=== PATIENT | female | born 2005 | race Caucasian/White ===

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

== ENCOUNTER 2025-02-12 21:26 | Emergency (ER) | payer OTHER, SELFPAY ==
--- NOTE | ~2025-02-12 | CT_ITS ---
CLINICAL HISTORY: epigastric pain CT abdomen and pelvis with contrast Comparison: None Findings: The lung bases are clear. Contracted gallbladder. No biliary ductal dilatation. Normal liver, spleen, pancreas, and adrenal glands. Unremarkable kidneys, ureters, and urinary bladder. Uterus and ovaries within normal limits. No free fluid or free air. Normal stomach, small bowel, appendix, and colon. Bones intact. IMPRESSION: No acute findings. This document has been electronically signed by: Jorge A Salguero MD on 02/13/2025 01:33:48
[2025-02-12 21:29] VITALS: BP 125/69; PULSE 84; RESP 16; TEMP 37.1; O2SAT 99; BMI 27.0
[2025-02-12 21:57] LABS: MANUAL DIFF FLAG NO
[2025-02-12 22:00] LABS: Basophils Percent Auto 0.4 % (0-2); Eosinophils Absolute Auto 0.1 X10*3/uL (0.0-0.4); Eosinophils Percent Auto 1.6 % (0-4); Hematocrit 36.9 % (37.0-47.0); Hemoglobin 12.5 g/dl (12.0-16.0); Imm Gran Abs Auto 0.01 X10*3/uL (0.00-0.03); Imm Gran Pct Auto 0.1 % (0.0-0.4); Lymphocytes Absolute Auto 3.4 X10*3/uL (1.2-4.9); Lymphocytes Percent Auto 41.3 % (20-40); Mean Corpuscular HGB Conc 33.9 g/dl (31.0-35.0); Mean Corpuscular Hemoglobin 30.6 pg (27.0-33.0); Mean Corpuscular Volume 90.4 fL (80.0-98.0); Mean Platelet Volume 11.2 fL (9.4-12.3); Monocytes Absolute Auto 0.7 X10*3/uL (0.1-1.2); Monocytes Percent Auto 9.1 % (2-11); Neutrophils Absolute Auto 3.9 x10*3/uL (2.0-8.3); Neutrophils Percent Auto 47.5 % (45-73); Platelet Count 296 X10*3/uL (160-400); Red Blood Count 4.08 X10*6/uL (4.20-5.50); Red Cell Distribution Width 13.2 % (11.0-16.0); White Blood Count 8.2 X10*3/uL (4.8-10.8)
[2025-02-12 22:12] LABS: Anion Gap 13 (12-20); Blood Urea Nitrogen 13 mg/dL (9-16); Calcium 9.1 mg/dL (8.4-10.2); Carbon Dioxide 24 mmol/L (22-29); Chloride 109 mmol/L (96-108); Creatinine Clr Calc Pharmacy 107.4; Estimated Glomerular Filt Rate > 60; Glucose Random 89 mg/dL (60-115); Potassium 3.9 mmol/L (3.3-5.1); Sodium 142 mmol/L (135-145)
[2025-02-12 22:36] LABS: Influenza A PCR NEGATIVE (Negative); Influenza B PCR NEGATIVE (Negative); Resp Syncy Virus RNA Qual PCR NEGATIVE (Negative); SARS COV2 PCR INHOUSE NEGATIVE (Negative)
[2025-02-12 23:38] VITALS: BP 123/64; PULSE 64; RESP 16; TEMP 37.2; O2SAT 100
--- NOTE | 2025-02-12 23:43 | MHC.EDTECH ---
this tech assumed care of this pt at this time, obtained a set of VS which were stable, call light given for safety, and pt changed over into hospital gown. Urine sample needed for pt, pt received specimen collection cup and educated to press call light when sample is provided.
--- NOTE | 2025-02-12 23:58 | MHC.EDTECH ---
at this time this tech sent pt urine specemin down to laboratory via tube system
[2025-02-13 00:02] LABS: Appearance Urine Cloudy; Color Urine Yellow; Glucose Urine UA Negative (Negative); Leukocyte Esterase Urine Moderate (2+) (Negative); Nitrite Urine Negative (Negative); Specific Gravity - Urine >= 1.030 (1.005-1.025); UMIC TRIGGER UACC YES; Urine Blood Negative (Negative); Urine Ketones Negative (Negative); Urine Protein Trace mg/dL (Neg-Trace)
[2025-02-13 00:07] LABS: Bacteria Urine 2+ (None Seen); Hyaline Casts Urine 0-2 /LPF (0-2); RBC Urine 0-2 /HPF (0-2); UACC Culture Trigger YES; UPreg QC Valid YES; Urine Pregnancy NEGATIVE (NEGATIVE); WBC Urine >50 /HPF (0-5)
[2025-02-13] MEDS: 0.9 % Sodium Chloride 1,000 ML 999 ML IV (00:22)
[2025-02-13] MEDS: Ketorolac Tromethamine 15 MG/ML VIAL IVPUSH (00:22)
[2025-02-13] MEDS: ondansetron HCL 4 MG/2 ML VIAL IVPUSH (00:22)
[2025-02-13] MEDS: cefTRIAXone sodium 1 GM VIAL IVPUSH (00:25)
--- NOTE | 2025-02-13 00:29 | PC.NURSE ---
Iv placed in right ac, medicated per mar.
--- NOTE | 2025-02-13 00:41 | ED_ITS ---
HPI - Abdominal Pain General Chief Complaint: Abdominal Pain Stated Complaint: Vomiting Time Seen by Provider: 02/12/25 23:59 History of Present Illness HPI narrative: Patient is a 19-year-old female unable to keep down her food for the last 3-4 days having pain in the abdomen. Having pain in the flank area pain seen by construction services technician already. Does not think she is . There is no vaginal discharge. Nausea vomiting generalized malaise. Has a history of norovirus. Has no increased frequency. Has no burning on urination. Patient has not had any abdominal surgery done in the past. No diarrhea. Related Data Previous Rx's ?Medication ?Instructions ?Recorded ondansetron 4 mg disintegrating 4 mg PO Q8H 4 days #12 tabs 01/25/22 tablet cefpodoxime 200 mg tablet 200 mg PO BID #20 tabs 05/31/23 ondansetron 4 mg disintegrating 4 mg PO Q8H PRN nausea and 05/31/23 tablet vomiting #12 tabs cefuroxime axetil 250 mg tablet 250 mg PO BID 7 days #14 tabs 06/02/23 cefuroxime axetil 500 mg tablet 500 mg PO BID Pyelonephritis #20 02/13/25 tabs ondansetron 4 mg disintegrating 4 mg PO TID PRN nausea and 02/13/25 tablet vomiting 5 days #10 tabs Allergies Allergy/AdvReac Type Severity Reaction Status Date / Time NSAIDS (Non-Steroidal Allergy Unknown Verified 02/12/25 21:31 Anti-Inflamma Review of Systems Review of Systems Positive nausea vomiting Yes all other systems are reviewed and are negative [facility] Past Medical History Attestation statement: The following information was validated with the patient. Medical History No known health problems Social History Social History Smoked in Last 30 Days: No Use of substances other than those prescribed or required for medical reasons: No Advance Directives: No Do you have a plan to hurt others: No Plan Physical Exam ED Vital Signs: Vital Signs - 24 hr 02/12/25 21:29 02/12/25 23:38 Temperature 98.8 F 98.9 F Pulse Rate 84 64 Respiratory Rate 16 16 Blood Pressure 125/69 123/64 Pulse Oximetry 99 100 Oxygen Delivery Method Room Air Room Air BMI result Body Mass Index 27.0 Appearance: Alert. Oriented X3. No acute distress. Eyes: Pupils equal, round and reactive to light. ENT: Pharynx normal. Neck: Normal inspection. Neck supple. No lymph nodes noted. No crepitus CVS: Normal heart rate and rhythm. Pulses normal. Normal S1 and S2 Respiratory: No respiratory distress. Breath sounds normal. No Wheezing. No rales Abdomen: Soft and nontender. No rigidity. No distention. good BS x4. Mild right-sided CVA tenderness Skin: Skin warm and dry. Normal skin color. Normal skin turgor. Extremities: No lower extremity edema. Neurovascular intact to all extremities. No Lacerations. No Rash Neuro: Oriented X 3. No motor deficit. No sensory deficit. Moving all extermities. No slurred speech Medical Decision Making Medical Decision Making MDM Narrative: test was negative there is no evidence for related issues. Patient is white count was normal. Urine shows signs of infection there is mild CVA tenderness noted. Patient's kidney function is normal. Will get a CT scan of the abdomen to rule out the possibility of kidney stones. Currently in no distress. COVID flu RSV were all negative. Patient's urine was grossly infected. Antibiotic was started. Patient is CT scan of the abdomen showed no evidence of kidney stone. Given fluids given Zofran for nausea. Antibiotics given. test was negative no related issues. COVID flu RSV were all negative. Will discharge patient home with additional antibiotics. Close follow-up on an outpatient basis. In stable condition. Differential Diagnosis Differential Diagnoses: The differential diagnosis associated with the presentation includes Pyelonephritis, kidney stone, biliary disease, appendicitis Admission/Observation Consideration of admission/observation: Escalation of care including admission/observation considered Lab Data [facility] Lab Attestation statement: I reviewed the patient's lab results. 02/12/25 21:49 02/12/25 21:49 Labs: Lab Results 02/12/25 02/12/25 Range/Units 21:49 23:52 WBC 8.2 (4.8-10.8) X10*3/uL RBC 4.08 L (4.20-5.50) X10*6/uL Hgb 12.5 (12.0-16.0) g/dl Hct 36.9 L (37.0-47.0) % MCV 90.4 (80.0-98.0) fL MCH 30.6 (27.0-33.0) pg MCHC 33.9 (31.0-35.0) g/dl RDW 13.2 (11.0-16.0) % Plt Count 296 (160-400) X10*3/uL MPV 11.2 (9.4-12.3) fL Immature Gran % (Auto) 0.1 (0.0-0.4) % Neut % (Auto) 47.5 (45-73) % Lymph % (Auto) 41.3 H (20-40) % [place] % (Auto) 9.1 (2-11) % Eos % (Auto) 1.6 (0-4) % Baso % (Auto) 0.4 (0-2) % Lymph # (Auto) 3.4 (1.2-4.9) X10*3/uL [place] # (Auto) 0.7 (0.1-1.2) X10*3/uL Eos # (Auto) 0.1 (0.0-0.4) X10*3/uL Baso # (Auto) 0.0 (0.0-0.2) X10*3/uL Abs Immat Gran (auto) 0.01 (0.00-0.03) X10*3/uL Absolute Neuts (auto) 3.9 (2.0-8.3) x10*3/uL Absolute Nucleated RBC 0.000 (0.0-0.012) X10*3/uL Nucleated RBC % (auto) 0.0 (0.0-0.2) /100WBC Sodium 142 (135-145) mmol/L Potassium 3.9 (3.3-5.1) mmol/L Chloride 109 H (96-108) mmol/L Carbon Dioxide 24 (22-29) mmol/L Anion Gap 13 (12-20) BUN 13 (9-16) mg/dL Creatinine 0.75 (0.5-1.4) mg/dL Estim Creat Clear Calc 107.4 Estimated GFR > 60 Random Glucose 89 (60-115) mg/dL Calcium 9.1 D (8.4-10.2) mg/dL Urine Color Yellow Urine Appearance Cloudy Urine pH 6.0 (5.0-9.0) Ur Specific [place] >= 1.030 H (1.005-1.025) Urine Protein Trace (Neg-Trace) mg/dL Urine Glucose (UA) Negative (Negative) mg/dL Urine Ketones Negative (Negative) mg/dL Urine Blood Negative (Negative) Urine Nitrite Negative (Negative) Ur Leukocyte Esterase Moderate (2+) H (Negative) Urine RBC 0-2 (0-2) /HPF Urine WBC >50 H (0-5) /HPF Ur Squamous Epith Cells 11-20 (0-2) /HPF Urine Bacteria 2+ (None Seen) Hyaline Casts 0-2 (0-2) /LPF Urine Test NEGATIVE (NEGATIVE) Influenza Type A (PCR) NEGATIVE (Negative) Influenza Type B (PCR) NEGATIVE (Negative) RSV RNA Qual (PCR) NEGATIVE (Negative) SARS-CoV-2 RNA (RT-PCR) NEGATIVE (Negative) Independent Interpretation I performed an independent interpretation of an: CT Scan (Grossly no obstruction no abscess no perforation) Radiology Impression Discussion of test interpretation with radiology: I have reviewed the radiologist's reading. Medications Administered Discontinued Medications Generic Name Dose Route Start Last Admin Trade Name Freq PRN Reason Stop Dose Admin Ceftriaxone Sodium 1 gm 02/13/25 00:17 02/13/25 00:25 Ceftriaxone Sodium 1 Gm Vial IVPUSH 02/13/25 00:18 1 gm ONCE ONE Administration Sodium Chloride 1,000 mls @ 999 mls/hr 02/13/25 00:15 02/13/25 01:27 Ns IV 02/13/25 01:15 Infused .Q1H1M SERENE Infusion Iohexol 85 ml 02/13/25 00:46 02/13/25 00:46 Iohexol 350 Mg/Ml 100 Ml Infus..Btl IV 02/13/25 00:47 85 ml ONCE ONE Administration Ketorolac Tromethamine 15 mg 02/13/25 00:06 02/13/25 00:22 Ketorolac Tromethamine 15 Mg/Ml Vial IVPUSH 02/13/25 00:07 15 mg ONCE ONE Administration Ondansetron HCl 4 mg 02/13/25 00:06 02/13/25 00:22 Ondansetron Hcl 4 Mg/2 Ml Vial IVPUSH 02/13/25 00:07 4 mg ONCE ONE Administration Discharge Plan Discharge Clinical Impression: Pyelonephritis Patient Disposition: Home, Self-Care Instructions: Kidney Infection (ED) Additional Instructions: May take Tylenol for pain. Zofran for nausea. Take your antibiotics. Prescriptions: New ondansetron 4 mg tablet,disintegrating 4 mg PO TID PRN (Reason: nausea and vomiting) 5 Days Qty: 10 0RF cefuroxime axetil 500 mg tablet 500 mg PO BID Qty: 20 0RF No Action ondansetron 4 mg tablet,disintegrating 4 mg PO Q8H 4 Days Qty: 12 0RF ondansetron 4 mg tablet,disintegrating 4 mg PO Q8H PRN (Reason: nausea and vomiting) Qty: 12 0RF cefpodoxime 200 mg tablet 200 mg PO BID Qty: 20 0RF Rx Instructions: must administer with a meal/food cefuroxime axetil 250 mg tablet 250 mg PO BID 7 Days Qty: 14 0RF Print Language: Italian
[2025-02-13] MEDS: iohexoL 350 MG/ML 100 ML INFUS..BTL 85 ML IV (00:46)
--- NOTE | 2025-02-13 02:02 | PC.NURSE ---
Iv removed, reviewed discharge instructions with pt. pt verbalized understanding, no sign of distress.
[2025-02-13 02:04] VITALS: BP 123/64; PULSE 64; RESP 16; TEMP 37.2; O2SAT 100
== END 2025-02-13 02:04 | disposition home or self-care (01) ==
PROVIDERS: Emergency Provider Emergency Medicine Emergency Medical Services; PCP Pediatrics
DX: N12 Tubulo-interstitial nephritis, not specified as acute or chronic (principal); R11.2 Nausea with vomiting, unspecified; R10.2 Pelvic and perineal pain; R53.81 Other malaise; Z03.818 Encounter for observation for suspected exposure to other biological agents ruled out; Z79.899 Other long term (current) drug therapy
CPT/HCPCS: 0241U; 36415; 74177; 80048; 81001; 81003; 81025; 85025; 87086; 96361; 96374; 96375; 99284; 99285; J0696; J1885; J2405; Q9967

== ENCOUNTER → 2025-02-13 00:06 | Outpatient (BNV) | payer OTHER, SELFPAY | PROVIDERS: Emergency Provider Emergency Medicine Emergency Medical Services; PCP Pediatrics; Visit Provider Radiology Diagnostic Radiology | DX: R10.13 Epigastric pain (principal) | CPT/HCPCS: 74177 ==

== ENCOUNTER 2025-06-16 10:18 | Emergency (ER) | payer OTHER, SELFPAY ==
[2025-06-16] VITALS (8 sets, daily range): BP systolic 100–145; BP diastolic 47–76; PULSE 58–115; RESP 16; TEMP 36.6–36.9; O2SAT 96–100; BMI 26.7
--- NOTE | ~2025-06-16 | US_ITS ---
CLINICAL HISTORY: ? gallstnes US gallbladder Comparison: CT/SR - CT ABDOMEN PELVIS W IV CON - 02/13/25 00:38 EDT Findings: There are 2 small gallbladder polyps measuring up to 4 mm in size. There are no shadowing gallstones. There is no gallbladder wall thickening or pericholecystic fluid. The common bile duct measures 3 mm. IMPRESSION: 1. There are 2 small gallbladder polyps. 2. No cholelithiasis or biliary obstruction. This document has been electronically signed by: Jewell Nash MD on 06/16/2025 16:49:53
[2025-06-16 10:40] LABS: MANUAL DIFF FLAG NO
[2025-06-16 10:41] LABS: Hematocrit 41.2 % (37.0-47.0); Hemoglobin 14.3 g/dl (12.0-16.0); Imm Gran Abs Auto 0.02 X10*3/uL (0.00-0.03); Imm Gran Pct Auto 0.3 % (0.0-0.4); Lymphocytes Absolute Auto 1.9 X10*3/uL (1.2-4.9); Mean Corpuscular HGB Conc 34.7 g/dl (31.0-35.0); Mean Corpuscular Hemoglobin 30.8 pg (27.0-33.0); Mean Corpuscular Volume 88.8 fL (80.0-98.0); NRBC Abs Auto 0.000 X10*3/uL (0.0-0.012); NRBC Pct Auto 0.0 /100WBC (0.0-0.2); Platelet Count 331 X10*3/uL (160-400); Red Blood Count 4.64 X10*6/uL (4.20-5.50); White Blood Count 6.0 X10*3/uL (4.8-10.8)
[2025-06-16 11:01] LABS: Alanine Aminotransferase 14 U/L (0-31); Albumin Level 5.0 g/dL (3.5-5.0); Alkaline Phosphatase 74 U/L (39-117); Anion Gap 15 (12-20); Aspartate Amino Transferase 19 U/L (5-31); Blood Urea Nitrogen 13 mg/dL (9-16); Calcium 9.9 mg/dL (8.4-10.2); Carbon Dioxide 24 mmol/L (22-29); Chloride 105 mmol/L (96-108); Creatinine Clr Calc Pharmacy 108.9; Estimated Glomerular Filt Rate > 60; Potassium 3.9 mmol/L (3.3-5.1); Sodium 140 mmol/L (135-145); Total Protein 8.8 g/dL (6.5-8.0)
--- NOTE | 2025-06-16 11:18 | PC.NURSE ---
PT AXO3 states she has been having mid abdominal pain that radiates to right flank. Last time pt ate solids was yesterday at 2::30 pm but pt vomited after, Pt has persistent n/v for about a week she states. PT sated also when she stands and get up she feels a head yañez and can't see anything for a few seconds. Ortho VS done. VS update. 20G IV placed in right AC pt changed into hospital gown waiting on provider. Call huerta within reach.
--- NOTE | 2025-06-16 11:37 | PC.NURSE ---
PT medicated per MAR, PT Aware she has to give UA sample, will notify staff when sample is given. PT is calm and cooperative.Call huerta within reach.
--- NOTE | 2025-06-16 12:29 | ED.NAVMDI ---
HPI - Nausea/Vomiting/Diarrhea General Chief complaint: Abdominal Pain Stated complaint: vomiting alot Time Seen by Provider: 06/16/25 10:56 Source: patient Mode of arrival: ambulatory Limitations: no limitations History of Present Illness HPI Narrative: This is a 20 years old the patient presented to the ED with a chief complaint of nausea vomiting and abdominal pain symptoms have been going on for about a month she was seen at the urgent care she was referred to us to rule out acute cholecystitis. She has no past medical history she does not take any medication last menstrual period was 2 days ago MD elicited complaint: nausea and vomiting Onset (ago): month(s) (1) Description of vomiting: watery Associated nausea: Yes Location of pain: none Quality: cramping Exacerbating factors: none Relieving factors: none Associated symptoms: denies other symptoms Related Data Previous Rx's ?Medication ?Instructions ?Recorded ondansetron 4 mg disintegrating 4 mg PO Q8H 4 days #12 tabs 01/25/22 tablet cefpodoxime 200 mg tablet 200 mg PO BID #20 tabs 05/31/23 ondansetron 4 mg disintegrating 4 mg PO Q8H PRN nausea and 05/31/23 tablet vomiting #12 tabs cefuroxime axetil 250 mg tablet 250 mg PO BID 7 days #14 tabs 06/02/23 cefuroxime axetil 500 mg tablet 500 mg PO BID Pyelonephritis #20 02/13/25 tabs ondansetron 4 mg disintegrating 4 mg PO TID PRN nausea and 02/13/25 tablet vomiting 5 days #10 tabs Allergies Allergy/AdvReac Type Severity Reaction Status Date / Time NSAIDS (Non-Steroidal Allergy Unknown Verified 06/16/25 10:21 Anti-Inflamma Review of Systems Constitutional: Constitutional: Reports no additional constitutional complaints Respiratory: Respiratory: Reports no additional respiratory complaints Gastrointestinal: Gastrointestinal: Reports nausea and Reports vomiting PMFSH Past Medical History PMFSH Narrative: none Medical History No known health problems Social History Social History Use of substances other than those prescribed or required for medical reasons: No Advance Directives: No Advance Directives Information Provided: No Do you have a plan to hurt others: No Plan Physical Exam Exam: Exam: On examination she looks well she is not toxic-appearing she is lying in the stretcher in not acute distress skin is warm and dry Vital Signs: Vital Signs: Last Vital Signs Temp 97.9 F 06/16/25 10:55 Pulse 66 06/16/25 14:27 Resp 16 06/16/25 10:20 BP 111/62 06/16/25 15:52 Pulse Ox 97 06/16/25 10:55 O2 Del Method Room Air 06/16/25 10:55 BMI result Body Mass Index 26.7 Const: General: cooperative, healthy appearing, comfortable and no acute distress Nutritional Appearance: average body habitus Orientation/consciousness: oriented to time Limitations: no limitations HEENT: Head: Yes normal to inspection Face and sinus: Yes normal facial exam Neck: Neck: Yes normal visual inspection Chest: Chest palpation & inspection: normal inspection of the chest Resp: Effort & Inspection: normal respiratory effort Auscultation: clear to auscultation bilaterally Cardio: Jugular venous distension: no JVD Rate: regular rate Rhythm: regular rhythm GI: Inspection: Yes normal to inspection Palpation (GI): Soft to palpation, not firm and nontender Auscultation: normal bowel sounds Skin: General skin exam: no rashes or lesions noted and elasticity normal Lesions: no lesions Rashes: no rashes Neuro: General: oriented to time Course Reevaluation(s) Reevaluation #1: As now I do not have an official reading of the ultrasound, I took a look myself to the ultrasound I do not see any gallstones or evidence of cholecystitis the common bile duct is normal at this point I think I can discharge the patient home given the fact that she has a normal white count Time: 16:21 Medications Administered Discontinued Medications Generic Name Dose Route Start Last Admin Trade Name Freq PRN Reason Stop Dose Admin Sodium Chloride 1,000 mls @ 999 mls/hr 06/16/25 11:30 06/16/25 14:24 Ns IVCONT 06/16/25 12:30 Infused .Q1H1M SERENE Infusion Acetaminophen 1,000 mg in 100 mls @ 400 mls/hr 06/16/25 12:25 06/16/25 13:51 Ofirmev IV 06/16/25 12:39 Infused ONCE ONE Infusion Ondansetron HCl 4 mg 06/16/25 11:19 06/16/25 11:27 Ondansetron Hcl 4 Mg/2 Ml Vial IVPUSH 06/16/25 11:20 4 mg ONCE ONE Administration Medical Decision Making Medical Decision Making [facility] Narrative: Patient is here complaining of nausea vomiting we will obtain labs administer IV fluid antiemetic and reassess Differential Diagnosis Differential Diagnoses: The differential diagnosis associated with the presentation includes Differential diagnosis dehydration/gastroenteritis/colitis/cholecystitis Admission/Observation Consideration of admission/observation: Escalation of care including admission/observation considered Lab Data 06/16/25 10:32 06/16/25 10:32 Labs: Lab Results 06/16/25 06/16/25 Range/Units 10:32 12:33 WBC 6.0 (4.8-10.8) X10*3/uL RBC 4.64 (4.20-5.50) X10*6/uL Hgb 14.3 (12.0-16.0) g/dl Hct 41.2 (37.0-47.0) % MCV 88.8 (80.0-98.0) fL MCH 30.8 (27.0-33.0) pg MCHC 34.7 (31.0-35.0) g/dl RDW 12.8 (11.0-16.0) % Plt Count 331 (160-400) X10*3/uL MPV 10.7 (9.4-12.3) fL Immature Gran % (Auto) 0.3 (0.0-0.4) % Neut % (Auto) 56.6 (45-73) % Lymph % (Auto) 32.4 (20-40) % [place] % (Auto) 9.2 (2-11) % Eos % (Auto) 1.0 (0-4) % Baso % (Auto) 0.5 (0-2) % Lymph # (Auto) 1.9 (1.2-4.9) X10*3/uL [place] # (Auto) 0.6 (0.1-1.2) X10*3/uL Eos # (Auto) 0.1 (0.0-0.4) X10*3/uL Baso # (Auto) 0.0 (0.0-0.2) X10*3/uL Abs Immat Gran (auto) 0.02 (0.00-0.03) X10*3/uL Absolute Neuts (auto) 3.4 (2.0-8.3) x10*3/uL Absolute Nucleated RBC 0.000 (0.0-0.012) X10*3/uL Nucleated RBC % (auto) 0.0 (0.0-0.2) /100WBC Sodium 140 (135-145) mmol/L Potassium 3.9 (3.3-5.1) mmol/L Chloride 105 (96-108) mmol/L Carbon Dioxide 24 (22-29) mmol/L Anion Gap 15 (12-20) BUN 13 (9-16) mg/dL Creatinine 0.73 (0.5-1.4) mg/dL Estim Creat Clear Calc 108.9 Estimated GFR > 60 Random Glucose 84 (60-115) mg/dL Calcium 9.9 D (8.4-10.2) mg/dL Total Bilirubin 1.0 (0.0-1.0) mg/dL AST 19 (5-31) U/L ALT 14 (0-31) U/L Alkaline Phosphatase 74 (39-117) U/L Total Protein 8.8 H (6.5-8.0) g/dL Albumin 5.0 (3.5-5.0) g/dL Urine Color Yellow Urine Appearance Cloudy Urine pH 6.0 (5.0-9.0) Ur Specific [place] >= 1.030 H (1.005-1.025) Urine Protein Trace (Neg-Trace) mg/dL Urine Glucose (UA) Negative (Negative) mg/dL Urine Ketones 40 (Negative) mg/dL Urine Blood Negative (Negative) Urine Nitrite Negative (Negative) Ur Leukocyte Esterase Moderate (2+) H (Negative) Urine RBC 0-2 (0-2) /HPF Urine WBC 21-50 H (0-5) /HPF Ur Squamous Epith Cells 11-20 (0-2) /HPF Urine Bacteria 4+ (None Seen) Hyaline Casts 0-2 (0-2) /LPF Discharge Plan Discharge Clinical Impression: Vomiting Qualifiers: Vomiting type: unspecified Nausea presence: with nausea Qualified Code(s): R11.2 - Nausea with vomiting, unspecified Patient Disposition: Home, Self-Care Instructions: Acute Nausea and Vomiting (ED), Acute Abdominal Pain (DC) Additional Instructions: Follow-up with your primary care physician return if you worse Prescriptions: No Action ondansetron 4 mg tablet,disintegrating 4 mg PO Q8H 4 Days Qty: 12 0RF ondansetron 4 mg tablet,disintegrating 4 mg PO TID PRN (Reason: nausea and vomiting) 5 Days Qty: 10 0RF cefuroxime axetil 500 mg tablet 500 mg PO BID Qty: 20 0RF ondansetron 4 mg tablet,disintegrating 4 mg PO Q8H PRN (Reason: nausea and vomiting) Qty: 12 0RF cefpodoxime 200 mg tablet 200 mg PO BID Qty: 20 0RF Rx Instructions: must administer with a meal/food cefuroxime axetil 250 mg tablet 250 mg PO BID 7 Days Qty: 14 0RF Print Language: [place]
[2025-06-16 12:50] LABS: Appearance Urine Cloudy; Glucose Urine UA Negative (Negative); PH 6.0 (5.0-9.0); Specific Gravity - Urine >= 1.030 (1.005-1.025); UMIC TRIGGER UACC YES
[2025-06-16 13:04] LABS: UACC Culture Trigger YES
--- NOTE | 2025-06-16 13:19 | PC.NURSE ---
IVF & IV Tylenol still infusing.
== END 2025-06-16 16:31 | disposition home or self-care (01) ==
PROVIDERS: Emergency Provider Emergency Medicine
DX: R11.2 Nausea with vomiting, unspecified (principal); R10.9 Unspecified abdominal pain
CPT/HCPCS: 36415; 76705; 80053; 81001; 81003; 85025; 87086; 96361; 96374; 96375; 99284; 99285; J0131; J2405

== ENCOUNTER → 2025-06-16 12:28 | Outpatient (BNV) | payer OTHER, SELFPAY | PROVIDERS: Emergency Provider Emergency Medicine; Visit Provider Radiology Diagnostic Radiology | DX: K82.8 Other specified diseases of gallbladder (principal) | CPT/HCPCS: 76705 ==